=== PATIENT | female | born 1990 | race Caucasian/White ===

== ENCOUNTER → 2020-02-18 | Outpatient (CLI) | payer OTHER ==
[~2020-02-18] MED LIST: AUGMENTIN; CEPH500 PO; PENVK500 PO; PREDNISONE; PRENATAL TABLE1 EAC2 PO; Percocet 5-3251 EACH PO
== END | disposition home or self-care (01) ==
LOC: LAB 16:30 → LAB SHORT 16:30
PROVIDERS: Obstetrics & Gynecology
DX: Z01.419 Encounter for gynecological examination (general) (routine) without abnormal findings (principal)
CPT/HCPCS: G0123

== ENCOUNTER 2020-08-20 07:13 | Inpatient (IN) | payer OTHER ==
[~2020-08-20] VITALS: Ht 160 cm; Wt 98.4 kg
[~2020-08-20 07:13] MED LIST changes: +B-COMPLEX WITH1 EAC3 PO
[2020-08-20 08:26] LABS: BASOPHILS ABSOLUTE AUTO 0.02 K/mm3 (0.00-0.23); BASOPHILS PERCENT AUTO 0 % (0-2); EOSINOPHILS ABSOLUTE AUTO 0.06 K/mm3 (0.00-0.68); EOSINOPHILS PERCENT AUTO 1 % (0-6); Hemoglobin 11.8 g/dL (11.5-16.0); IMMATURE GRAN ABSOLUTE AUTO 0.03 K/mm3 (0.00-0.10); IMMATURE GRAN PERCENT AUTO 0 % (0-1); LYMPHOCYTES ABSOLUTE AUTO 2.59 K/mm3 (0.84-5.20); LYMPHOCYTES PERCENT AUTO 26 % (21-46); MONOCYTES ABSOLUTE AUTO 0.95 K/mm3 (0.16-1.47); MONOCYTES PERCENT AUTO 10 % (4-13); Mean Corpuscular HGB 30.9 pg (26.0-34.0); Mean Corpuscular HGB Conc 33.7 g/dL (31.5-36.5); Mean Corpuscular Volume 92 fL (80-100); Mean Platelet Volume 10.9 fL (9.1-12.4); NEUTROPHILS ABSOLUTE AUTO 6.32 K/mm3 (1.96-9.15); NEUTROPHILS PERCENT AUTO 63 % (41-73); Platelet Count 252 K/mm3 (150-400); RDW Coefficient Variation 14.2 % (11.7-14.2); RDW Standard Deviation 47.9 fL (35.1-46.3); Red Blood Cell Count 3.82 M/mm3 (3.80-5.20); White Blood Cell Count 9.97 K/mm3 (4.00-11.30)
[2020-08-20 08:47] LABS: Influenza A, PCR NEGATIVE (NEGATIVE); Influenza B, PCR NEGATIVE (NEGATIVE); Resp Syncytial Virus, PCR NEGATIVE (NEGATIVE); SARS-Cov-2 (COVID-19) PCR, MMC NEGATIVE (NEGATIVE)
[2020-08-20] MEDS ORDERED: IBUP800 PO (17:00)
[2020-08-20] MEDS ORDERED: DOCU100 PO (17:00)
--- NOTE | 2020-08-21 09:10 | NUR ---
SROM AT 0645 CLEAR FLUID. ADMITTED IN ACTIVE LABOR
--- NOTE | 2020-08-21 12:05 | NUR ---
DISCHARGE INSTRUCTIONS, WRITTEN AND VERBAL, GIVEN TO PT AND , KEVIN. ANSWERED ALL QUESTIONS AND CONCERNS. PT'S PRESCRIPTIONS CALLED INTO [facility], PER PT REQUEST. IV DISCONTINUED. PT REFUSED FLU VACCINE. PT IS READY FOR DISCHARGE.
--- NOTE | 2020-08-21 13:52 | NUR ---
FOLLOW UP APPOINTMENT SCHEDULED. PT IS GATHERING BELONGINGS AND IS READY FOR DISCHARGE. F/U 08/24 AT 1300. PT TO BE DRIVEN HOME BY , KEVIN.
--- NOTE | 2020-09-16 19:48 | NUR ---
LATE ENTRY NOTE EPHEDRINE SULFATE GIVEN ORDERED BY 5MG PER EMR 45MG WASTED IN [facility]
== END 2020-08-21 14:15 | disposition home or self-care (01) | DRG 807 ==
LOC: OBS 07:13 → BC 07:14 → OBS 07:55 → BC 07:56
PROVIDERS: ADMIT Obstetrics & Gynecology
PROC: 10E0XZZ Delivery of Products of Conception, External Approach (ICD-10-PCS; principal; 2020-08-20)
PROC: 10907ZC Drainage of Amniotic Fluid, Therapeutic from Products of Conception, Via Natural or Artificial Opening (ICD-10-PCS; 2020-08-20)
PROC: 0HQ9XZZ Repair Perineum Skin, External Approach (ICD-10-PCS; 2020-08-20)
PROC: 00HU33Z Insertion of Infusion Device into Spinal Canal, Percutaneous Approach (ICD-10-PCS; 2020-08-20)
PROC: 3E0R3BZ Introduction of Anesthetic Agent into Spinal Canal, Percutaneous Approach (ICD-10-PCS; 2020-08-20)
DX: O99.214 Obesity complicating childbirth (principal); Z37.0 Single live birth; E66.9 Obesity, unspecified; Z20.822 Contact with and (suspected) exposure to COVID-19; O64.8XX0 Obstructed labor due to other malposition and malpresentation, not applicable or unspecified; O70.0 First degree perineal laceration during delivery; Z3A.39 39 weeks gestation of pregnancy; Z67.91 Unspecified blood type, Rh negative; Z90.49 Acquired absence of other specified parts of digestive tract; Z87.891 Personal history of nicotine dependence
CPT/HCPCS: 0241U; 36415; 51702; 59025; 85025; 86850; 86900; 86901; A9270; J1885; J2001; J2590; J3010; J7120

== ENCOUNTER → 2024-02-29 | Outpatient (CLI) | payer OTHER ==
[~2024-02-29] MED LIST changes: +DOCU100 PO; +Hair, Skin & N1 EACH PO; +IBUP800 PO
[2024-03-08 12:16] LABS: HPV HIGH RISK BY TMA Not Detected; HPV SOURCE Cervical
== END ==
LOC: LAB SHORT 17:19 → LAB 17:19
PROVIDERS: Registered Nurse
DX: Z01.419 Encounter for gynecological examination (general) (routine) without abnormal findings (principal)
CPT/HCPCS: 87624; G0123

== ENCOUNTER 2024-03-14 11:07 | Day surgery (SDC) | payer OTHER ==
[~2024-03-14] VITALS: Ht 160 cm; Wt 90.9 kg
[~2024-03-14 11:07] MED LIST changes: -Hair, Skin & N1 EACH PO; +Lactated Ringer's 1,000 ML IV ONE; +Ropivacaine 0.5% HCL/PF 5 MG/ML 30ML Vial ONE
[2024-03-14] MEDS ORDERED: Ondansetron HCl 2 MG / ML 2ML Vial ONE ×2 (11:17→13:29)
[2024-03-14] MEDS ORDERED: Rocuronium Bromide 10 MG/ML 5ML Injection IV ONE ×2 (11:17→11:18)
[2024-03-14] MEDS ORDERED: Dexamethasone Sod Phos 10 MG/ML 1ML VIAL ONE (11:17)
[2024-03-14] MEDS ORDERED: Ketorolac Tromethamine 30mg Vial ONE (11:17)
[2024-03-14] MEDS ORDERED: FentaNYL Citrate 50 MCG/ML 2 ML Injection ONE (11:18)
[2024-03-14] MEDS ORDERED: propofoL 20 ML IV ONE (11:18)
[2024-03-14] MEDS ORDERED: Hair, Skin & N1 EACH PO (11:37)
[2024-03-14] MEDS ORDERED: Lactated Ringer's 1,000 ML IV ONE (11:48)
[2024-03-14] MEDS ORDERED: Sugammadex Sodium 200 MG/2ML SDV (100 MG/ML) ONE (12:16)
--- NOTE | 2024-03-14 12:47 | NUR ---
03/14/24 1247 Niko Gray ROPIVACAINE 0.5% 10 ML MIXED & VERIFIED W/ EPI 0.05 ML TO MAKE ROPIVACAINE 0.5% 1:200,000 FOR INJECTION AT INCISION SITE BY DR MCLEOD.
[2024-03-14] MEDS ORDERED: EPINEPhrine HCl 1 MG/ML 1ML Amp XX ONE (12:50)
[2024-03-14 14:31] VITALS: BP 107/77
== END 2024-03-14 14:31 | disposition home or self-care (01) ==
LOC: ORSCSDS 11:07
PROVIDERS: Obstetrics & Gynecology
PROC: 0UT7FZZ Resection of Bilateral Fallopian Tubes, Via Natural or Artificial Opening With Percutaneous Endoscopic Assistance (ICD-10-PCS; principal; 2024-03-14 12:30)
PROC: 0U5F4ZZ Destruction of Cul-de-sac, Percutaneous Endoscopic Approach (ICD-10-PCS; principal; 2024-03-14 12:30)
DX: Z30.2 Encounter for sterilization (principal); N80.00 Endometriosis of the uterus, unspecified; N73.6 Female pelvic peritoneal adhesions (postinfective); Z87.891 Personal history of nicotine dependence; Z68.35 Body mass index [BMI] 35.0-35.9, adult; Z79.899 Other long term (current) drug therapy; Z79.82 Long term (current) use of aspirin
CPT/HCPCS: 88302; J0171; J1100; J1885; J2405; J2704; J2795; J3010; J7120